=== PATIENT | female | born 1995 | race African-American/Black ===

== ENCOUNTER 2017-01-23 16:29 | Emergency (ER) | payer SELFPAY ==
[2017-01-23] MEDS ORDERED: LORAZEPAM INJ 2 MG/1 ML VIAL IV ONE (16:57)
[2017-01-23] MEDS ORDERED: LEVETIRACETAM 1000 MG/NACL-ISO 100 ML IV ONE (17:18)
[2017-01-23] MEDS ORDERED: LORAZEPAM INJ 2 MG/1 ML VIAL IM ONE (17:19)
--- NOTE | 2017-01-23 17:22 | ER Document Report ---
ED Seizure - General Chief Complaint: Probable Seizure Stated Complaint: POSSIBLE SEIZURE Notes: The patient is a 21-year-old female, past medical history seizure disorder, resents after a generalized tonic-clonic seizure that lasted about 40 seconds. She is postictal on arrival to the emergency room. When she arrived to the emergency room, she had an additional seizure that lasted 30 seconds. Patient has not taken her Keppra for 2 months because she recently moved and no longer has a neurologist or primary care physician. Boyfriend at bedside and denies fall, drug use, fevers, meningismal signs, focal weakness or blurry vision. Past Medical History - General Information source: Relative - Boyfriend, Emergency Med Personnel - Social History Smoking Status: Unknown if Ever Smoked Family History: Reviewed & Not Pertinent Review of Systems - Review of Systems -: Yes ROS unobtainable due to patient's medical condition Physical Exam - Vital signs Vitals: Pulse Resp BP Pulse Ox 107 H 24 H 98/50 L 100 01/23/17 17:31 01/23/17 17:31 01/23/17 17:31 01/23/17 17:31 - Notes Notes: PHYSICAL EXAMINATION: GENERAL: Agitated HEAD: Atraumatic, normocephalic. EYES: Pupils equal round and reactive to light, extraocular movements intact, sclera anicteric, conjunctiva are normal. ENT: nares patent, oropharynx clear without exudates. Moist mucous membranes. NECK: Normal range of motion, supple without lymphadenopathy LUNGS: Breath sounds clear to auscultation bilaterally and equal. No wheezes rales or rhonchi. HEART: Regular rate and rhythm without murmurs ABDOMEN: Soft, nontender, normoactive bowel sounds. No guarding, no rebound. No masses appreciated. EXTREMITIES: Normal range of motion, no pitting or edema. No cyanosis. NEUROLOGICAL: Moving all 4 extremities. Uncooperative. Opens eyes to voice. Flailing body over gurney during IV placement. SKIN: Warm, Dry, normal turgor, no rashes or lesions noted. Course - Re-evaluation Re-evalutation: Patient's electrolytes are normal and she is not . No head injury. Provided a prescription for Keppra 500 mg twice a day and have her follow-up with her primary care physician and neurologist. 01/23/17 19:04 Patient is awake and ambulating steadily without any assistance. Told patient that she must take the Keppra as prescribed and follow-up with the neurologist primary care physician. - Vital Signs Vital signs: Temp Pulse Resp BP Pulse Ox 107 H 24 H 98/50 L 100 01/23/17 17:31 01/23/17 17:31 01/23/17 17:31 01/23/17 17:31 - Laboratory Result Diagrams: 01/23/17 17:20 Laboratory results interpreted by me: 01/23/17 17:20 Carbon Dioxide 15 L Anion Gap 23 H Glucose 118 H Discharge - Discharge Clinical Impression: Recurrent seizures Condition: Good Disposition: HOME, SELF-CARE Additional Instructions: Always take your Keppra as prescribed. You must call for an appointment with the primary care physician and neurologist. Seizure, Known Epileptic You have had a seizure. Seizures may "break through" in an epileptic due to stress of infection or injury, a change in blood chemistry, or drug and alcohol use. Another common cause is failure to take medication as prescribed. Your doctor has evaluated your situation for the likely cause of this seizure. It is important that you follow his advice concerning any medication changes and follow-up care. Further testing of anti-seizure medication levels in your blood may be necessary. If you have a lease purchase driver's license, it's important that you DO NOT DRIVE until given permission by your physician. This seizure must be reported to the lease purchase driver 's license bureau. Call the doctor or return if seizures recur, or if new or unusual symptoms arise -- such as severe headache, confusion, excessive sleepiness, local weakness or numbness, neck stiffness, or fever. Prescriptions: Levetiracetam [Keppra 500 mg Tablet] 500 mg PO Q12 #60 tablet Referrals: CELESTINA WHITTINGTON MD [ACTIVE STAFF] - Follow up as needed
[2017-01-23 17:58] LABS: BLOOD UREA NITROGEN 9 mg/dL (7-20); CALCIUM 10.2 mg/dL (8.4-10.2); CHLORIDE 103 mmol/L (98-107); CREATININE RESULT 0.79 mg/dL (0.52-1.25); GLUCOSE 118 mg/dL (75-110); POTASSIUM 4.4 mmol/L (3.6-5.0)
[2017-01-23 18:05] LABS: CARBON DIOXIDE 15 mmol/L (22-30); SODIUM 140.7 mmol/L (137-145)
[2017-01-23 18:07] LABS: ANION GAP 23 (5-19)
[2017-01-23 19:57] VITALS: BP 120/60
== END 2017-01-23 19:32 | disposition home or self-care (01) ==
LOC: ER 16:29
DX: G40.909 Epilepsy, unspecified, not intractable, without status epilepticus (principal); Z91.14 Patient's other noncompliance with medication regimen
CPT/HCPCS: 99285; 96372; 96374; 36415; 84703; 80048; J2060